=== PATIENT | male | born 1950 | race Caucasian/White ===

== ENCOUNTER 2017-05-23 08:25 | Day surgery (SDC) | payer MEDICARE ==
[2017-05-23 08:48] LABS: HEMOGLOBIN 12.5 g/dL (14.1-18.0); LYMPH # 1.3 K/mm3 (0.7-4.5); LYMPH % 24.1 % (10-50)
[2017-05-23 08:57] LABS: BUN 31 mg/dL (7-18)
[2017-05-23 08:58] LABS: GFR (ESTIMATED) 44 ML/MIN (>60)
[2017-05-23 14:36] LABS: ARTERIAL O2 SAT CATH LAB 82 % (90-100); VENOUS O2 SAT CATH LAB 83 % (75-80)
--- NOTE | 2017-05-23 15:50 | RADIOLOGY REPORT PS360 ---
CARDIAC CATHETERIZATION DATE OF CATHETERIZATION:05/23/2017 1:29 PM PROCEDURES: 1. Right heart catheterization 2. Left heart catheterization 3. Left ventriculogram 4. Selective coronary angiogram 5. Drug-eluting stent deployment to the distal dominant right coronary artery INDICATION FOR TEST: 1. Severe mitral regurgitation 2. Systolic CHF 3. Cardiac cachexia 4. Pulmonary hypertension 5. Class IV angina pectoralis Informed consent was obtained prior to the procedure. COMPLICATIONS: None ESTIMATED BLOOD LOSS: Less than 10 ml. TECHNIQUE: One percent lidocaine was used to anesthetize the right groin. The right femoral artery was accessed via the Seldinger technique. A 4-Tuvaluan and 7 italian sheath was placed in the right femoral artery and vein respectfully. A Watson-Namita catheter was floated into the pulmonary artery and right heart catheterization was performed. Following this a JL 4 JR4 catheter were used to perform left heart catheterization left ventriculogram and selective coronary angiography. Patient had a severe stenosis in the mid to distal dominant right coronary artery. Because of his severe LV dysfunction he was not a candidate for FFR evaluation. It is my opinion that this lesion was at least 70% stenosis in this particular gentleman would benefit from revascularization. This is a low risk procedure which may provide additional benefit for his class IV heart failure as well as is class IV angina pectoris. Because of this 7500 units of heparin was administered intravenously and the 4 [place] arterial sheath was exchanged for a 6 [place] sheath. The JR4 guide catheter sheath was used intubate the right coronary artery and a BMW wire was placed distally followed by a 4 mm x 38 mm resolute Jann stent deployed at 20 [place]. Proximally there is residual stenosis therefore a 4 mm x 8 mm noncompliant balloon was deployed at 24 [place] in the proximal portion finding reducing the stenosis less than 20%. Following this a 6 [place] JL4 catheter was used to perform left coronary angiography. The initial ACT was 346 seconds prior to the procedure and 339 seconds. On completion of the procedure. MARKOS-3 flow was present before and after stenting of the right coronary artery. In the procedure the apparatus was removed the groin is reprepped gloves were changed femoral artery sheath was removed good hemostasis was achieved using Perclose device patient transferred the postop holding area in stable condition ANGIOGRAPHIC RESULTS: 1. The left main artery normal 2. The left anterior descending artery has a stent in the proximal to mid segment which is widely patent free of in-stent restenosis with excellent proximal and distal transitioning 3. The circumflex artery is non dominant and has a ramus intermedius with a proximal eccentric 50% nonflow limiting stenosis. Solitary obtuse marginal artery is a small vessel and normal 4. The right coronary artery large dominant vessel and extensively calcified throughout its entire course. There are stents present in the proximal mid and distal segment. In the mid segment there is a concentric very hazy at least 70% stenosis followed by an additional eccentric 50% distal stenosis. Following stenting of both lesions were reduced to less than 20% on the first lesion and less than 10% on the second lesion 5. The FELDMAN ventriculogram reveals dilated ventricle with estimated LVEF of 25% The left ventricular end-diastolic pressure is 8-10 mm hg HEMODYNAMICS: Right atrial pressure is 5 mm Hg. Pulmonary arterial pressure is 30/15 mm Hg. Pulmonary artery occlusion pressure is 10 mm Hg. SATURATIONS: RA is 83 %. PA is 82 %. IMPRESSION: 1. Severe in-stent restenosis in a massively large dominant right coronary artery in a patient suffering from class IV congestive heart failure class IV angina pectoris and cardiac cachexia also suffering from severe COPD. 2. Successful stenting of the mid distal dominant right coronary artery angiographically severe disease reduced to less than 20% and less than 10% in 2 tandem lesions with 1 drug-eluting stent 3. Mild pulmonary hypertension 4. Compensated euvolemic cardiac and pulmonary filling pressures 5. Severe left ventricular dysfunction PLAN: 1. Continue Plavix and aspirin 2. LDL less than 55 3. Avoidance of tobacco products 4. Standard therapy for systolic congestive heart failure 5. Cardiac rehabilitation
[2017-05-23 18:56] VITALS: BP 118/74
== END 2017-05-23 18:56 | disposition home or self-care (01) ==
LOC: CATHLAB 08:25
PROVIDERS: Internal Medicine
PROC: B2111ZZ Fluoroscopy of Multiple Coronary Arteries using Low Osmolar Contrast (ICD-10-PCS; 2017-05-23)
PROC: B2151ZZ Fluoroscopy of Left Heart using Low Osmolar Contrast (ICD-10-PCS; 2017-05-23)
PROC: 027034Z Dilation of Coronary Artery, One Artery with Drug-eluting Intraluminal Device, Percutaneous Approach (ICD-10-PCS; 2017-05-23)
PROC: 4A023N8 Measurement of Cardiac Sampling and Pressure, Bilateral, Percutaneous Approach (ICD-10-PCS; principal; 2017-05-23 13:30)
DX: I25.119 Atherosclerotic heart disease of native coronary artery with unspecified angina pectoris (principal); Z72.0 Tobacco use; Z95.5 Presence of coronary angioplasty implant and graft; I27.2 Other secondary pulmonary hypertension; I34.0 Nonrheumatic mitral (valve) insufficiency; I50.21 Acute systolic (congestive) heart failure; R64 Cachexia; J44.9 Chronic obstructive pulmonary disease, unspecified
CPT/HCPCS: C1725; C1760; C1769; C1876; C1894; J1644; Q9967